=== PATIENT | male | born 1980 | race Caucasian/White ===

== ENCOUNTER → 2017-07-13 | Outpatient (REF) | payer OTHER ==
[2017-07-13 13:17] LABS: IMMMOTILE SPERM CENTRIFUGED PRESENT (ABSENT); IMMOTILE SPERM PRESENT (ABSENT); MOTILE SPERM PRESENT (ABSENT); MOTILE SPERM CENTRIFUGED PRESENT (ABSENT); SEMEN APPEARANCE OPAQUE (OPAQUE); SEMEN VISCOSITY VISCOUS (LIQUID); WBC CONCENTRATION >1 M/ml (<=1 M/ml)
== END ==
LOC: M SMT 13:04
DX: Z30.8 Encounter for other contraceptive management (principal); Z98.52 Vasectomy status

== ENCOUNTER → 2017-07-13 | Outpatient (CLI) | payer OTHER | LOC: M SMT 13:20 | DX: N50.819 Testicular pain, unspecified (principal); N43.3 Hydrocele, unspecified | CPT/HCPCS: 76870 ==

== ENCOUNTER → 2017-07-29 | Outpatient (REF) | payer OTHER ==
[2017-07-29 12:20] LABS: #MOTILE SPERM COUNTED 4; SEMEN APPEARANCE OPAQUE (OPAQUE); SEMEN VISCOSITY LIQUID (LIQUID); SEMEN VOLUME 2.1 ML (4.0-5.0); SEMEN WBC <=1 M/ml (<=1 M/ml)
[2017-07-29 12:21] LABS: #IMMOTILE SPERM COUNTED 6; % MOTILITY 40 (> 40%); SPERM CONCENTRATION 5 M/ml (> 15 M/ml); TOTAL # SPERM COUNTED 10 M/ml
== END ==
LOC: M SMT 10:56
DX: Z98.52 Vasectomy status (principal)

== ENCOUNTER → 2017-08-08 | Outpatient (REF) | payer OTHER | LOC: M SMT 14:20 | DX: Z30.8 Encounter for other contraceptive management (principal) ==

== ENCOUNTER → 2017-10-04 | Outpatient (REF) | payer OTHER ==
[2017-10-04 15:19] LABS: IMMMOTILE SPERM CENTRIFUGED ABSENT (ABSENT); IMMOTILE SPERM ABSENT (ABSENT); MOTILE SPERM ABSENT (ABSENT); MOTILE SPERM CENTRIFUGED ABSENT (ABSENT); SEMEN APPEARANCE OPAQUE (OPAQUE); SEMEN VISCOSITY VISCOUS (LIQUID); SEMEN VOLUME 1.2 ml (4.0-5.0); SEMEN pH 8.5 (7.0-8.0); WBC CONCENTRATION <=1 M/ml (<=1 M/ml)
== END ==
LOC: M SMT 14:57
DX: Z30.2 Encounter for sterilization (principal)